=== PATIENT | male | born 1955 | race Caucasian/White ===

== ENCOUNTER 2021-03-03 10:08 | Inpatient (IN) | payer MEDICARE ==
[~2021-03-03] VITALS: Ht 176.5 cm; Wt 67.3 kg
[~2021-03-03 10:08] MED LIST: DIAZEPAM 5MG TAB5 MG PO; DULERA 200 MCG8.8 GM INH; DUONEB 2.5-0.5M1 AMP NEB; LOPRESSOR50 MG PO; MEDROL 4MG DOSEP4 MG PO
[2021-03-03 10:37] LABS: BASOPHIL 0.8 % (0-2); EOSINOPHIL 0.3 % (0-7); HCT 48.8 % (42.0-52.0); HGB 16.2 g/dl (13.2-18.0); LYMPHOCYTE 9.2 % (15-48); MCH 30.3 pg (25.0-31.0); MCHC 33.2 g/dL (32.0-36.0); MCV 91.2 fL (78.0-100.0); MONOCYTE 6.4 % (0-12); MPV 10.6 fL (6.0-9.5); NEUTROPHIL 82.9 % (41-80); NRBC 0; PLT 347 K/uL (150-400); RBC 5.35 M/uL (4.70-6.00); RDW 13.5 % (11.5-14.0)
[2021-03-03 10:58] LABS: PRO-BNP 40 pg/mL (<125)
[2021-03-03 11:04] LABS: ALBUMIN 4.2 g/dL (3.4-5.0); BILIRUBIN - TOTAL 0.5 mg/dL (0.2-1.0); BUN/CREAT RATIO (CALC) 22.1 RATIO; CREATININE 1.04 mg/dL (0.67-1.17); GLOBULIN (CALCULATION) 3.9 g/dL; POTASSIUM 5.2 mmol/L (3.5-5.1); TOTAL PROTEIN 8.1 g/dL (6.4-8.2)
[2021-03-03 11:41] LABS: CORONAVIRUS 2019 SARS-COV-2 NEGATIVE (NEGATIVE); INFLUENZA A NAA NEGATIVE (NEGATIVE)
[2021-03-03 11:50] LABS: BILIRUBIN 1+ mg/dL (NEGATIVE); BLOOD TRACE-INTACT Ery/uL (NEGATIVE); CLARITY CLEAR (CLEAR); COLOR YELLOW (YELLOW); GLUCOSE (U) NORMAL (NORMAL); LEUKOCYTES NEGATIVE Leu/uL (NEGATIVE); NITRITE NEGATIVE (NEGATIVE); PROTEIN 1+ mg/dL (NEGATIVE); SPECIFIC GRAVITY >=1.030 (1.001-1.030); UROBILINOGEN 0.2 mg/dL (0.2-1.0); pH 5.5 (5.0-9.0)
[2021-03-03 12:41] LABS: BACTERIA TRACE; URINARY RBC RARE
[2021-03-03 12:42] LABS: GRANULAR CASTS TRACE; MUCOUS TRACE
[2021-03-03 12:45] LABS: SQUAMOUS EPITHELIAL CELLS RARE
[2021-03-03] MEDS ORDERED: PROAIR HFA8.5 GM INH (14:22)
[2021-03-04 06:08] LABS: BASOPHIL 0.2 % (0-2); EOSINOPHIL 0 % (0-7); HGB 12.9 g/dl (13.2-18.0); MCH 30.8 pg (25.0-31.0); MCHC 33.9 g/dL (32.0-36.0); MCV 90.7 fL (78.0-100.0); MONOCYTE 4.5 % (0-12); MPV 10.9 fL (6.0-9.5); NEUTROPHIL 89.6 % (41-80); NRBC 0; PLT 249 K/uL (150-400); RBC 4.19 M/uL (4.70-6.00); RDW 13.6 % (11.5-14.0); WBC 14.1 K/uL (4.0-10.5)
[2021-03-04 06:36] LABS: BUN/CREAT RATIO (CALC) 22.5 RATIO; CREATININE 0.8 mg/dL (0.67-1.17); MAGNESIUM 1.6 mg/dL (1.8-2.4); POTASSIUM 4.6 mmol/L (3.5-5.1)
[2021-03-05 07:06] LABS: BASOPHIL 0.2 % (0-2); EOSINOPHIL 0 % (0-7); HCT 37.3 % (42.0-52.0); HGB 12.4 g/dl (13.2-18.0); LYMPHOCYTE 2.9 % (15-48); MCH 30.2 pg (25.0-31.0); MCHC 33.2 g/dL (32.0-36.0); MONOCYTE 4.3 % (0-12); NEUTROPHIL 91.5 % (41-80); NRBC 0; PLT 255 K/uL (150-400); RDW 13.9 % (11.5-14.0)
[2021-03-05 07:10] LABS: WBC 19.4 K/uL (4.0-10.5)
[2021-03-05 07:36] LABS: BUN/CREAT RATIO (CALC) 23.7 RATIO; CREATININE 0.76 mg/dL (0.67-1.17); POTASSIUM 4.4 mmol/L (3.5-5.1)
[2021-03-05 07:50] LABS: MAGNESIUM 2.1 mg/dL (1.8-2.4)
--- NOTE | 2021-03-05 15:01 | NUR ---
MET WITH PT. ADVISED THAT IN HAD BEEN NOTIFIED OF HIS ADMISSION. GAVE PT. INFORMATION REGARDING SOCIAL SECURITY DISABILITY AND FIANANCIAL RESOURCES. PT. STATES THAT HE INTENDS TO RETURN TO WORK AT [email or web address]
[2021-03-06 05:45] LABS: BASOPHIL 0.2 % (0-2); EOSINOPHIL 0 % (0-7); HCT 35.3 % (42.0-52.0); HGB 11.8 g/dl (13.2-18.0); LYMPHOCYTE 8.9 % (15-48); MCH 30.6 pg (25.0-31.0); MCHC 33.4 g/dL (32.0-36.0); MCV 91.7 fL (78.0-100.0); MONOCYTE 10.1 % (0-12); NEUTROPHIL 79.8 % (41-80); NRBC 0; PLT 249 K/uL (150-400); RBC 3.85 M/uL (4.70-6.00); RDW 14.1 % (11.5-14.0); WBC 14.2 K/uL (4.0-10.5)
[2021-03-06 06:08] LABS: BUN/CREAT RATIO (CALC) 19.5 RATIO; CREATININE 0.82 mg/dL (0.67-1.17); MAGNESIUM 1.8 mg/dL (1.8-2.4); PHOSPHORUS 2.3 mg/dL (2.6-4.7); POTASSIUM 4.2 mmol/L (3.5-5.1)
[2021-03-07 06:19] LABS: BASOPHIL 0.6 % (0-2); EOSINOPHIL 0 % (0-7); HCT 41.3 % (42.0-52.0); HGB 13.7 g/dl (13.2-18.0); LYMPHOCYTE 6.7 % (15-48); MCH 30.2 pg (25.0-31.0); MCHC 33.2 g/dL (32.0-36.0); MCV 91.2 fL (78.0-100.0); MONOCYTE 5.5 % (0-12); MPV 11.3 fL (6.0-9.5); NEUTROPHIL 84.5 % (41-80); NRBC 0; PLT 254 K/uL (150-400); RBC 4.53 M/uL (4.70-6.00); WBC 11.9 K/uL (4.0-10.5)
[2021-03-07 06:47] LABS: ALBUMIN 2.6 g/dL (3.4-5.0); BILIRUBIN - TOTAL 0.2 mg/dL (0.2-1.0); BUN/CREAT RATIO (CALC) 20.3 RATIO; CREATININE 0.74 mg/dL (0.67-1.17); GLOBULIN (CALCULATION) 3.5 g/dL; MAGNESIUM 1.7 mg/dL (1.8-2.4); POTASSIUM 4.6 mmol/L (3.5-5.1); TOTAL PROTEIN 6.1 g/dL (6.4-8.2)
[2021-03-08] MEDS ORDERED: XANAX0.5 MG PO ×2 (09:09→09:14)
[2021-03-08] MEDS ORDERED: BREO ELLIPTA 11 EACH INH (09:09)
[2021-03-08] MEDS ORDERED: DUONEB 2.5-0.5M1 AMP NEB (09:09)
[2021-03-08] MEDS ORDERED: SINGULAIR10 MG PO (09:09)
[2021-03-08] MEDS ORDERED: ALPRAZOLAM0.5 MG PO (09:14)
[2021-03-08 09:56] LABS: BASOPHIL 0.2 % (0-2); EOSINOPHIL 1.7 % (0-7); HCT 41.6 % (42.0-52.0); HGB 13.8 g/dl (13.2-18.0); LYMPHOCYTE 16.5 % (15-48); MCH 30.2 pg (25.0-31.0); MCHC 33.2 g/dL (32.0-36.0); MONOCYTE 9.7 % (0-12); NRBC 0.2; PLT 251 K/uL (150-400); RBC 4.57 M/uL (4.70-6.00); RDW 14.2 % (11.5-14.0); WBC 12.9 K/uL (4.0-10.5)
[2021-03-08 10:03] LABS: NEUTROPHIL 65.9 % (41-80)
[2021-03-08 10:35] LABS: BUN/CREAT RATIO (CALC) 17.6 RATIO; CREATININE 0.85 mg/dL (0.67-1.17); MAGNESIUM 1.5 mg/dL (1.8-2.4); POTASSIUM 3.7 mmol/L (3.5-5.1)
== END 2021-03-08 14:13 | disposition home or self-care (01) | DRG 872 ==
LOC: FER 10:08 → FMS 12:34
PROVIDERS: Emergency Medicine; ADMIT Internal Medicine
DX: A41.9 Sepsis, unspecified organism (principal); J44.0 Chronic obstructive pulmonary disease with (acute) lower respiratory infection; J44.1 Chronic obstructive pulmonary disease with (acute) exacerbation; E87.2 Acidosis; J43.9 Emphysema, unspecified; R65.20 Severe sepsis without septic shock; J20.9 Acute bronchitis, unspecified; F17.210 Nicotine dependence, cigarettes, uncomplicated; F41.9 Anxiety disorder, unspecified; E83.42 Hypomagnesemia; Z20.822 Contact with and (suspected) exposure to COVID-19; R00.0 Tachycardia, unspecified; R06.03 Acute respiratory distress; G89.29 Other chronic pain; M54.2 Cervicalgia; Z87.442 Personal history of urinary calculi; Z87.01 Personal history of pneumonia (recurrent); Z88.5 Allergy status to narcotic agent; Z80.0 Family history of malignant neoplasm of digestive organs; Z82.49 Family history of ischemic heart disease and other diseases of the circulatory system; Z81.2 Family history of tobacco abuse and dependence; Z79.899 Other long term (current) drug therapy
CPT/HCPCS: 36415; 36600; 71045; 71046; 71275; 80048; 80053; 81001; 82803; 83605; 83735; 83880; 84100; 84145; 84484; 85025; 85379; 87040; 87088; 93005; 94640; 94667; 94668; 94760; J0456; J0696; J1650; J2920; J2930; J3475; J7030; J7050; J7120; Q9967; U0002

== ENCOUNTER 2021-05-28 09:52 | Inpatient (IN) | payer MEDICARE ==
[~2021-05-28] VITALS: Ht 175.3 cm; Wt 66.4 kg
[~2021-05-28 09:52] MED LIST changes: +ALPRAZOLAM0.5 MG PO; +BREO ELLIPTA 11 EACH INH; +PROAIR HFA8.5 GM INH; +SINGULAIR10 MG PO; +XANAX0.5 MG PO
[2021-05-28 10:10] LABS: BASOPHIL 1.4 % (0-2); EOSINOPHIL 1.8 % (0-7); HCT 51.4 % (42.0-52.0); HGB 16.8 g/dl (13.2-18.0); LYMPHOCYTE 34.9 % (15-48); MCH 29.4 pg (25.0-31.0); MCHC 32.7 g/dL (32.0-36.0); MCV 89.9 fL (78.0-100.0); MONOCYTE 7.6 % (0-12); MPV 9.8 fL (6.0-9.5); NRBC 0; PLT 329 K/uL (150-400); RBC 5.72 M/uL (4.70-6.00); RDW 14.8 % (11.5-14.0); WBC 7.6 K/uL (4.0-10.5)
[2021-05-28 10:37] LABS: BILIRUBIN - TOTAL 0.2 mg/dL (0.2-1.0); BUN/CREAT RATIO (CALC) 28.6 RATIO; CREATININE 0.84 mg/dL (0.67-1.17); GLOBULIN (CALCULATION) 4.1 g/dL; MAGNESIUM 1.9 mg/dL (1.8-2.4); POTASSIUM 4.1 mmol/L (3.5-5.1); TOTAL PROTEIN 8.1 g/dL (6.4-8.2)
[2021-05-28 13:22] LABS: AMPHETAMINES NEGATIVE (NEGATIVE); BARBITURATES NEGATIVE (NEGATIVE); BILIRUBIN NEGATIVE (NEGATIVE); BLOOD 1+ Ery/uL (NEGATIVE); CLARITY CLEAR (CLEAR); COLOR YELLOW (YELLOW); ECSTASY (MDMA) NEGATIVE (NEGATIVE); GLUCOSE (U) NORMAL (NORMAL); LEUKOCYTES NEGATIVE Leu/uL (NEGATIVE); MARIJUANA (THC) NEGATIVE (NEGATIVE); METHADONE NEGATIVE (NEGATIVE); NITRITE NEGATIVE (NEGATIVE); OPIATES NEGATIVE (NEGATIVE); OXYCODONE NEGATIVE (NEGATIVE); PROTEIN 1+ mg/dL (NEGATIVE); SPECIFIC GRAVITY >=1.030 (1.001-1.030); UROBILINOGEN 0.2 mg/dL (0.2-1.0); pH 5.5 (5.0-9.0)
[2021-05-28 13:37] LABS: URINARY WBC RARE
[2021-05-28 15:33] LABS: LACTIC ACID 6.2 mmol/L (0.4-1.9)
[2021-05-29 04:54] LABS: BUN/CREAT RATIO (CALC) 27.9 RATIO; CREATININE 0.68 mg/dL (0.67-1.17); MAGNESIUM 1.7 mg/dL (1.8-2.4); PHOSPHORUS 2.6 mg/dL (2.6-4.7); POTASSIUM 4.9 mmol/L (3.5-5.1)
[2021-05-29 09:22] LABS: IRON % SATURATION 98.3 %SAT (20-50)
--- NOTE | 2021-05-29 17:34 | NUR ---
5271 PT DISCHARGE INSTRUCTION DISCUSSED WITH PT, PT VERBALIZED UNDERSTANDING. PT TRANSPORTED VIA WHEELCHAIR TO CAB TO TAKE HIM HOME.
== END 2021-05-29 16:53 | disposition home or self-care (01) | DRG 896 ==
LOC: FER 09:52 → FTCU 13:24
PROVIDERS: Emergency Medicine; ADMIT Internal Medicine
DX: F10.229 Alcohol dependence with intoxication, unspecified (principal); G93.41 Metabolic encephalopathy; E87.2 Acidosis; Y90.8 Blood alcohol level of 240 mg/100 ml or more; J44.9 Chronic obstructive pulmonary disease, unspecified; F10.239 Alcohol dependence with withdrawal, unspecified; F17.210 Nicotine dependence, cigarettes, uncomplicated; G89.29 Other chronic pain; Z20.822 Contact with and (suspected) exposure to COVID-19; Z87.01 Personal history of pneumonia (recurrent); Z98.890 Other specified postprocedural states; Z87.440 Personal history of urinary (tract) infections; Z88.5 Allergy status to narcotic agent; Z79.51 Long term (current) use of inhaled steroids; Z79.899 Other long term (current) drug therapy
CPT/HCPCS: 36415; 36600; 70450; 71045; 80048; 80053; 80305; 81001; 82550; 82607; 82803; 83540; 83550; 83605; 83735; 84100; 84484; 85025; 87088; 93005; 94640; C9113; G0480; J2560; J2930; J3360; J3411; J3475; J7120; U0002

== ENCOUNTER 2021-06-21 07:55 | Day surgery (SDCO) | payer OTHER ==
[~2021-06-21] VITALS: Ht 177.8 cm; Wt 63.0 kg
[2021-06-21 09:10] LABS: BASOPHIL 8.6 % (0-2); EOSINOPHIL 0 % (0-7); HCT 51.6 % (42.0-52.0); HGB 17.4 g/dl (13.2-18.0); LYMPHOCYTE 5.6 % (15-48); MCH 30.1 pg (25.0-31.0); MCHC 33.7 g/dL (32.0-36.0); MCV 89.3 fL (78.0-100.0); MONOCYTE 6.2 % (0-12); MPV 12.8 fL (6.0-9.5); NEUTROPHIL 64.6 % (41-80); PLT 125 K/uL (150-400); RBC 5.78 M/uL (4.70-6.00); RDW 15.8 % (11.5-14.0)
[2021-06-21 09:17] LABS: NRBC 0; WBC 4.7 K/uL (4.0-10.5)
[2021-06-21 09:34] LABS: LACTIC ACID 4.4 mmol/L (0.4-1.9)
[2021-06-21 09:39] LABS: ALBUMIN 4.5 g/dL (3.4-5.0); BILIRUBIN - TOTAL 1.8 mg/dL (0.2-1.0); BUN/CREAT RATIO (CALC) 32.2 RATIO; CREATININE 0.87 mg/dL (0.67-1.17); GLOBULIN (CALCULATION) 4.6 g/dL; POTASSIUM 3.3 mmol/L (3.5-5.1); TOTAL PROTEIN 9.1 g/dL (6.4-8.2)
[2021-06-21] MEDS ORDERED: TRAZODONE HCL150 MG PO (16:17)
[2021-06-21] MEDS ORDERED: COMBIVENT RESPIM4 GM INH (16:21)
[2021-06-22 04:54] LABS: BASOPHIL 0.1 % (0-2); EOSINOPHIL 0.1 & (0-7); HCT 38.5 % (42.0-52.0); HGB 12.8 g/dl (13.2-18.0); LYMPHOCYTE 14.8 % (15-48); MCH 30.2 pg (25.0-31.0); MCHC 33.2 g/dL (32.0-36.0); MCV 90.8 fL (78.0-100.0); MONOCYTE 8.8 % (0-12); MPV 12.9 fL (6.0-9.5); NEUTROPHIL 75.7 % (41-80); PLT 90 K/uL (150-400); RBC 4.24 M/uL (4.70-6.00); RDW 15.2 % (11.5-14.0); WBC 7.92 K/uL (4.0-10.5)
[2021-06-22 05:16] LABS: ALBUMIN 2.8 g/dL (3.4-5.0); BILIRUBIN - TOTAL 0.7 mg/dL (0.2-1.0); BUN/CREAT RATIO (CALC) 23.4 RATIO; CREATININE 0.77 mg/dL (0.67-1.17); GLOBULIN (CALCULATION) 3.2 g/dL; MAGNESIUM 1.7 mg/dL (1.8-2.4); POTASSIUM 3.3 mmol/L (3.5-5.1)
[2021-06-23 06:06] LABS: BASOPHIL 0.3 % (0-2); EOSINOPHIL 1.8 & (0-7); HCT 39.2 % (42.0-52.0); HGB 12.8 g/dl (13.2-18.0); LYMPHOCYTE 20.3 % (15-48); MCH 29.9 pg (25.0-31.0); MCHC 32.7 g/dL (32.0-36.0); MCV 91.6 fL (78.0-100.0); MONOCYTE 10.8 % (0-12); MPV 12.1 fL (6.0-9.5); NEUTROPHIL 66.1 % (41-80); RBC 4.28 M/uL (4.70-6.00); RDW 14.9 % (11.5-14.0)
[2021-06-23 06:08] LABS: PLT 86 K/uL (150-400)
[2021-06-23 06:43] LABS: ALBUMIN 2.6 g/dL (3.4-5.0); BILIRUBIN - TOTAL 0.7 mg/dL (0.2-1.0); BUN/CREAT RATIO (CALC) 15.7 RATIO; CREATININE 0.7 mg/dL (0.67-1.17); MAGNESIUM 1.7 mg/dL (1.8-2.4); PHOSPHORUS 3.2 mg/dL (2.6-4.7); POTASSIUM 3.4 mmol/L (3.5-5.1); TOTAL PROTEIN 5.6 g/dL (6.4-8.2)
--- NOTE | 2021-06-23 15:14 | NUR ---
PATIENTS BROTHER TOOK PATIENTS KLINE HOME PER PATIENT REQUEST. I COUNTED THE MONEY WITH THE PATIENT AND HIS BROTHER, ENRIQUE DE LEÓN HAD A TOTAL OF $[id number] DAVID DE LEÓN BROTHER TOOK KLINE HOME, PATIENT APPROVED. PATIENT HAD URINATED ON KLINE. I TOLD PATIENT WE COULD LOCK UP HIS MONEY IN THE SAFE IN THE CLOSET, HOWEVER PATIENT WANTED BROTHER TO TAKE THE KLINE WITH HIM.
[2021-06-24 07:42] LABS: BASOPHIL 0.7 % (0-2); EOSINOPHIL 4.8 % (0-7); HCT 38.6 % (42.0-52.0); HGB 12.9 g/dl (13.2-18.0); LYMPHOCYTE 22.3 % (15-48); MCH 30.4 pg (25.0-31.0); MCHC 33.4 g/dL (32.0-36.0); MCV 90.8 fL (78.0-100.0); MONOCYTE 14.7 % (0-12); MPV 11.8 fL (6.0-9.5); NEUTROPHIL 56.3 % (41-80); NRBC 0; PLT 114 K/uL (150-400); RBC 4.25 M/uL (4.70-6.00); WBC 5.8 K/uL (4.0-10.5)
[2021-06-24 07:53] LABS: ALBUMIN 2.6 g/dL (3.4-5.0); BILIRUBIN - TOTAL 0.5 mg/dL (0.2-1.0); BUN/CREAT RATIO (CALC) 17.7 RATIO; CREATININE 0.62 mg/dL (0.67-1.17); GLOBULIN (CALCULATION) 3.1 g/dL; MAGNESIUM 1.6 mg/dL (1.8-2.4); POTASSIUM 3.5 mmol/L (3.5-5.1); TOTAL PROTEIN 5.7 g/dL (6.4-8.2)
--- NOTE | 2021-06-24 13:50 | NUR ---
06/24/21 Mr. mcmahon will be discharged on 06/25. A referral was made to [place], Olya Osei, , to arrange for a cane and HH for PT.
== END 2021-06-25 14:24 | disposition home health service (06) ==
LOC: FER 07:55 → FMS 13:57
PROVIDERS: Emergency Medicine Emergency Medical Services; ADMIT Internal Medicine
DX: F10.131 Alcohol abuse with withdrawal delirium (principal); J44.9 Chronic obstructive pulmonary disease, unspecified; F17.210 Nicotine dependence, cigarettes, uncomplicated; I44.4 Left anterior fascicular block; I51.7 Cardiomegaly; K22.8 Other specified diseases of esophagus; M54.2 Cervicalgia; G89.29 Other chronic pain; Z79.51 Long term (current) use of inhaled steroids; Z79.899 Other long term (current) drug therapy; Z88.5 Allergy status to narcotic agent; Z20.822 Contact with and (suspected) exposure to COVID-19; Z87.01 Personal history of pneumonia (recurrent); Z87.81 Personal history of (healed) traumatic fracture
CPT/HCPCS: 36415; 36600; 70450; 71045; 71275; 80053; 82803; 83605; 83690; 83735; 83880; 84100; 84484; 85025; 85379; 86140; 87040; 87880; 93005; 94640; 97110; 97116; 97161; G0378; J0696; J1650; J2060; J2405; J2930; J3411; J3475; J7030; J7050; J7120; Q9967; U0002

== ENCOUNTER 2021-09-15 15:17 | Inpatient (IN) | payer OTHER ==
[~2021-09-15] VITALS: Ht 175.3 cm; Wt 61.7 kg
[~2021-09-15 15:17] MED LIST changes: +COMBIVENT RESPIM4 GM INH; +TRAZODONE HCL150 MG PO
[2021-09-15 15:54] LABS: BASOPHIL 0.9 % (0-2); EOSINOPHIL 1.1 % (0-7); HGB 13.2 g/dl (13.2-18.0); LYMPHOCYTE 15.7 % (15-48); MCH 30.3 pg (25.0-31.0); MCHC 33.8 g/dL (32.0-36.0); MCV 89.7 fL (78.0-100.0); MONOCYTE 12.7 % (0-12); MPV 10.4 fL (6.0-9.5); NEUTROPHIL 68.7 % (41-80); NRBC 0.9; PLT 143 K/uL (150-400); RBC 4.35 M/uL (4.70-6.00); RDW 16.2 % (11.5-14.0); WBC 4.6 K/uL (4.0-10.5)
[2021-09-15 16:11] LABS: BILIRUBIN - TOTAL 0.7 mg/dL (0.2-1.0); BUN/CREAT RATIO (CALC) 32.4 RATIO; CREATININE 0.68 mg/dL (0.67-1.17); GLOBULIN (CALCULATION) 3.6 g/dL; POTASSIUM 3.9 mmol/L (3.5-5.1); TOTAL PROTEIN 7.6 g/dL (6.4-8.2)
[2021-09-15 16:58] LABS: BILIRUBIN NEGATIVE (NEGATIVE); BLOOD 2+ Ery/uL (NEGATIVE); CLARITY CLEAR (CLEAR); COLOR YELLOW (YELLOW); GLUCOSE (U) 2+ mg/dL (NORMAL); LEUKOCYTES NEGATIVE Leu/uL (NEGATIVE); NITRITE NEGATIVE (NEGATIVE); PROTEIN 2+ mg/dL (NEGATIVE); SPECIFIC GRAVITY >=1.030 (1.001-1.030)
[2021-09-15 16:59] LABS: AMPHETAMINES NEGATIVE (NEGATIVE); BARBITURATES NEGATIVE (NEGATIVE); ECSTASY (MDMA) NEGATIVE (NEGATIVE); MARIJUANA (THC) NEGATIVE (NEGATIVE); METHADONE NEGATIVE (NEGATIVE); OPIATES NEGATIVE (NEGATIVE); OXYCODONE NEGATIVE (NEGATIVE)
[2021-09-15 17:04] LABS: BACTERIA TRACE; SQUAMOUS EPITHELIAL CELLS RARE
[2021-09-15 18:19] LABS: INR 0.92 (0.9-1.2); PROTHROMBIN TIME 11.8 SECONDS (11.8-13.4)
[2021-09-15 18:33] LABS: MAGNESIUM 1.6 mg/dL (1.8-2.4)
[2021-09-16 06:20] LABS: BASOPHIL 0.7 % (0-2); EOSINOPHIL 0.5 % (0-7); HCT 32.6 % (42.0-52.0); HGB 11.2 g/dl (13.2-18.0); MCH 30.4 pg (25.0-31.0); MCHC 34.4 g/dL (32.0-36.0); MCV 88.6 fL (78.0-100.0); MONOCYTE 8.6 % (0-12); MPV 11.3 fL (6.0-9.5); NEUTROPHIL 74.5 % (41-80); NRBC 1.5; PLT 130 K/uL (150-400); RBC 3.68 M/uL (4.70-6.00); RDW 16.4 % (11.5-14.0); WBC 6.1 K/uL (4.0-10.5)
[2021-09-16 06:26] LABS: INR 0.92 (0.9-1.2); PROTHROMBIN TIME 11.8 SECONDS (11.8-13.4)
[2021-09-16 06:41] LABS: ALBUMIN 3.1 g/dL (3.4-5.0); BILIRUBIN - TOTAL 1.2 mg/dL (0.2-1.0); BUN/CREAT RATIO (CALC) 26.5 RATIO; CREATININE 0.68 mg/dL (0.67-1.17); GLOBULIN (CALCULATION) 3.1 g/dL; MAGNESIUM 1.8 mg/dL (1.8-2.4); POTASSIUM 3.8 mmol/L (3.5-5.1); TOTAL PROTEIN 6.2 g/dL (6.4-8.2)
[2021-09-16 09:23] LABS: IRON % SATURATION 81.7 %SAT (20-50)
[2021-09-16 09:50] LABS: PHOSPHORUS 2.6 mg/dL (2.6-4.7)
[2021-09-17 06:21] LABS: BASOPHIL 0.7 % (0-2); HCT 33.4 % (42.0-52.0); LYMPHOCYTE 21.2 % (15-48); MCHC 32.9 g/dL (32.0-36.0); MONOCYTE 9.9 % (0-12); MPV 11.7 fL (6.0-9.5); NEUTROPHIL 65.4 % (41-80); NRBC 1.2; PLT 119 K/uL (150-400); RBC 3.67 M/uL (4.70-6.00)
[2021-09-17 06:47] LABS: ALBUMIN 2.8 g/dL (3.4-5.0); BILIRUBIN - TOTAL 0.8 mg/dL (0.2-1.0); BUN/CREAT RATIO (CALC) 15.7 RATIO; CREATININE 0.7 mg/dL (0.67-1.17); GLOBULIN (CALCULATION) 2.8 g/dL; MAGNESIUM 1.9 mg/dL (1.8-2.4); PHOSPHORUS 2.5 mg/dL (2.6-4.7); POTASSIUM 3.5 mmol/L (3.5-5.1); TOTAL PROTEIN 5.6 g/dL (6.4-8.2)
[2021-09-18] MEDS ORDERED: VITAMIN B-1100 MG PO (12:13)
== END 2021-09-18 12:50 | disposition home or self-care (01) | DRG 897 ==
LOC: FER 15:17 → FICU 17:20 → FTCU 17:20 → FICU 17:54
PROVIDERS: Emergency Medicine; Internal Medicine; ADMIT Family Medicine
PROC: HZ2ZZZZ Detoxification Services for Substance Abuse Treatment (ICD-10-PCS; principal; 2021-09-15)
DX: F10.231 Alcohol dependence with withdrawal delirium (principal); Z20.822 Contact with and (suspected) exposure to COVID-19; J44.9 Chronic obstructive pulmonary disease, unspecified; R27.0 Ataxia, unspecified; F17.200 Nicotine dependence, unspecified, uncomplicated; D69.59 Other secondary thrombocytopenia; R73.9 Hyperglycemia, unspecified; R94.31 Abnormal electrocardiogram [ECG] [EKG]; Z71.6 Tobacco abuse counseling; Z83.3 Family history of diabetes mellitus; Z82.49 Family history of ischemic heart disease and other diseases of the circulatory system; Z98.890 Other specified postprocedural states; Z87.442 Personal history of urinary calculi; Z88.5 Allergy status to narcotic agent
CPT/HCPCS: 36415; 80053; 80305; 81001; 82140; 82550; 82607; 83036; 83540; 83550; 83690; 83735; 84100; 84484; 85025; 85610; 93005; 97110; 97162; 97166; 97530-GP; 97535; C9113; G0480; J1650; J2060; J2405; J3411; J3475; J7030; J7120; U0002

== ENCOUNTER 2021-10-13 03:10 | Inpatient (IN) | payer OTHER ==
[~2021-10-13] VITALS: Ht 177.8 cm; Wt 96.2 kg
[~2021-10-13 03:10] MED LIST changes: +VITAMIN B-1100 MG PO
[2021-10-13 04:05] LABS: BASOPHIL 0.5 % (0-2); EOSINOPHIL 0 % (0-7); HGB 13.3 g/dl (13.2-18.0); LYMPHOCYTE 15.3 % (15-48); MCH 30.9 pg (25.0-31.0); MCHC 34.1 g/dL (32.0-36.0); MCV 90.7 fL (78.0-100.0); MPV 11.6 fL (6.0-9.5); NEUTROPHIL 67.7 % (41-80); NRBC 0.9; PLT 106 K/uL (150-400); RDW 19.7 % (11.5-14.0); WBC 5.6 K/uL (4.0-10.5)
[2021-10-13 04:12] LABS: ECSTASY (MDMA) NEGATIVE (NEGATIVE); MARIJUANA (THC) NEGATIVE (NEGATIVE); METHADONE NEGATIVE (NEGATIVE); OPIATES NEGATIVE (NEGATIVE)
[2021-10-13 04:13] LABS: AMPHETAMINES NEGATIVE (NEGATIVE); BARBITURATES NEGATIVE (NEGATIVE); OXYCODONE NEGATIVE (NEGATIVE)
[2021-10-13 04:25] LABS: CORONAVIRUS 2019 SARS-COV-2 NEGATIVE (NEGATIVE); INFLUENZA A NAA NEGATIVE (NEGATIVE)
[2021-10-13 04:33] LABS: LACTIC ACID 2.7 mmol/L (0.4-1.9)
[2021-10-13 04:36] LABS: ALBUMIN 4.1 g/dL (3.4-5.0); ALKALINE PHOSHATASE 132 U/L (46-116); ALT 93 U/L (16-63); AST 120 U/L (15-37); BILIRUBIN - TOTAL 1.5 mg/dL (0.2-1.0); BUN 18 mg/dL (7-18); BUN/CREAT RATIO (CALC) 24.7 RATIO; CHLORIDE 92 mmol/L (98-107); CO2 (BICARBONATE) 30 mmol/L (21-32); CREATININE 0.73 mg/dL (0.67-1.17); GLOBULIN (CALCULATION) 3.2 g/dL; GLUCOSE 106 mg/dL (74-106); LIPASE 273 U/L (73-393); PHOSPHORUS 2.5 mg/dL (2.6-4.7); POTASSIUM 3.9 mmol/L (3.5-5.1); TOTAL PROTEIN 7.3 g/dL (6.4-8.2)
[2021-10-13 04:41] LABS: C-REACTIVE PROTEIN < 0.20 mg/dL (<=0.90)
[2021-10-13 08:56] LABS: BILIRUBIN 1+ mg/dL (NEGATIVE); BLOOD 3+ Ery/uL (NEGATIVE); CLARITY CLEAR (CLEAR); GLUCOSE (U) NORMAL (NORMAL); LEUKOCYTES NEGATIVE Leu/uL (NEGATIVE); NITRITE NEGATIVE (NEGATIVE); PROTEIN 2+ mg/dL (NEGATIVE); pH 8.5 (5.0-9.0)
[2021-10-13 09:13] LABS: COLOR AMBER (YELLOW)
[2021-10-13 09:14] LABS: BACTERIA TRACE; SQUAMOUS EPITHELIAL CELLS RARE; URINARY RBC 20-50
[2021-10-14 07:20] LABS: BASOPHIL 0.7 % (0-2); EOSINOPHIL 0.7 % (0-7); HCT 31.6 % (42.0-52.0); HGB 10.8 g/dl (13.2-18.0); LYMPHOCYTE 22.9 % (15-48); MCH 30.7 pg (25.0-31.0); MCHC 34.2 g/dL (32.0-36.0); MCV 89.8 fL (78.0-100.0); MONOCYTE 15.8 % (0-12); MPV 12.7 fL (6.0-9.5); NEUTROPHIL 59.2 % (41-80); NRBC 0.5; PLT 88 K/uL (150-400); RBC 3.52 M/uL (4.70-6.00); RDW 18.8 % (11.5-14.0); WBC 5.6 K/uL (4.0-10.5)
[2021-10-14 08:10] LABS: ALBUMIN 3.1 g/dL (3.4-5.0); BILIRUBIN - TOTAL 0.9 mg/dL (0.2-1.0); BUN/CREAT RATIO (CALC) 13.6 RATIO; CREATININE 0.66 mg/dL (0.67-1.17); GLOBULIN (CALCULATION) 2.9 g/dL; MAGNESIUM 1.1 mg/dL (1.8-2.4); PHOSPHORUS 2.5 mg/dL (2.6-4.7); POTASSIUM 2.9 mmol/L (3.5-5.1)
--- NOTE | 2021-10-14 15:13 | NUR ---
10/14 A social assessment was conducted with Mr. Dosrey. He was found to be mildly confused. He has been residing in a hotle, although he doesn't know the name of the hotel. Mr. Dorsey had a difficult time operating his cell telephone to call his sister. He reports to have his bags packed to go for treatment for etoh abuse arranged by his sister, Raquel Dorsey, . Raquel states that she doesn't have a facility for him to go. - Mr. Dorsey reports to have been using a wc owned by the [email or web address]. He has a cane. - Mr. Dorsey reports to have last drank 1.5 weeks ago. - PT recommended SNF. - Peggy Morales, [place] patient care provider, referred to [facility]. Clinicals were faxed to PCP, Reina Cummings NP (fax - [phone]). Glenis RIVERA, at the [facility], , reports that Mr. Dorsey does not have VA benefits for [place].
--- NOTE | 2021-10-14 19:26 | NUR ---
ASKED DR. LESTER IF HE WANTED PATIENT ON TELY, DR. LESTER SAID NO. HE DIDN'T ORDER TELY FOR FLOOR DR. LESTER STATED. THAT WAS A ER ORDER BY A ER DOCTOR, NOT A ORDER FOR MEDSUR.
--- NOTE | 2021-10-14 21:43 | NUR ---
PT QUESTIONING "THE LITTLE GIRL" HE SEES OUTSIDE HIS ROOM. PT HALLUCINATING. WHEN EXPLAINED THERE WAS NO LITTLE GIRL PT STATED "WELL, I HOPE IM NOT THE ONLY ONE SEEING HER." PT AGREES TO CALL FOR AMULATION ASSIST. CALL LIGHT IN REACH, CHAIR ALARM ON.
[2021-10-15 07:44] LABS: BASOPHIL 1.2 % (0-2); EOSINOPHIL 2.6 % (0-7); HCT 35.3 % (42.0-52.0); HGB 11.6 g/dl (13.2-18.0); MCH 31.1 pg (25.0-31.0); MCHC 32.9 g/dL (32.0-36.0); MONOCYTE 15.6 % (0-12); MPV 11.4 fL (6.0-9.5); NEUTROPHIL 58.2 % (41-80); NRBC 0; RBC 3.73 M/uL (4.70-6.00); RDW 19.3 % (11.5-14.0)
[2021-10-15 07:45] LABS: MCV 94.6 fL (78.0-100.0); PLT 92 K/uL (150-400)
[2021-10-15 09:48] LABS: CREATININE 0.74 mg/dL (0.67-1.17)
[2021-10-15 09:49] LABS: POTASSIUM 4.3 mmol/L (3.5-5.1)
--- NOTE | 2021-10-16 14:01 | NUR ---
10/16/21 [facility] has declined to accept patient. Referrals have been faxed to [facility] (no bed), [facility], [place], and [facility].
--- NOTE | 2021-10-17 06:26 | NUR ---
EARLY THIS SHIFT, LAST NIGHT BEFORE HS, PT BEGAN CRYING & CONFIDING THAT HE MISSES HIS & FAMILY & FEELS HE HAS LOST EVERYTHING. I LISTENED, SUPPORTED PT & ALLOWED HIM TO PROCESS HIS FEELINGS.
--- NOTE | 2021-10-17 10:10 | NUR ---
10/17 [facility] has accepted patient for admission today. Please fax DS [phone] and call report to [phone]. Raquel Dorsey, sister, [phone] will transport. Please call Ms Dorsey when patient is ready for transport. Report given to MS MIGUEL Bauer.
[2021-10-18 10:07] LABS: HEMATOCRIT 34.4 % (37.5-51.0)
== END 2021-10-17 16:26 | DRG 897 ==
LOC: FER 03:10 → FMS 11:05 → FER 11:05 → FMS 12:06
PROVIDERS: Allergy & Immunology Allergy; Emergency Medicine Emergency Medical Services; ADMIT Internal Medicine
DX: F10.188 Alcohol abuse with other alcohol-induced disorder (principal); N39.0 Urinary tract infection, site not specified; G62.1 Alcoholic polyneuropathy; R27.0 Ataxia, unspecified; Z20.822 Contact with and (suspected) exposure to COVID-19; J44.9 Chronic obstructive pulmonary disease, unspecified; F10.130 Alcohol abuse with withdrawal, uncomplicated; R31.9 Hematuria, unspecified; M19.90 Unspecified osteoarthritis, unspecified site; K70.0 Alcoholic fatty liver; D69.59 Other secondary thrombocytopenia; M54.9 Dorsalgia, unspecified; Z79.52 Long term (current) use of systemic steroids; Z79.899 Other long term (current) drug therapy; Z80.0 Family history of malignant neoplasm of digestive organs; Z82.49 Family history of ischemic heart disease and other diseases of the circulatory system
CPT/HCPCS: 36415; 70450; 71260; 72125; 72128; 72131; 80048; 80053; 80305; 81001; 82607; 82747; 83605; 83690; 83735; 84100; 84145; 84443; 84484; 85014; 85025; 86140; 87040; 93005; 94640; 96372; 97162; 97166; 97530-GP; 97535; G0480; J0696; J2060; J2560; J3411; J3475; J7030; Q9967; U0002

== ENCOUNTER 2022-01-30 12:12 | Emergency (ER) | payer OTHER | END 2022-01-30 13:17 | disposition home or self-care (01) | LOC: FER 12:12 | DX: Z02.79 Encounter for issue of other medical certificate (principal); J44.9 Chronic obstructive pulmonary disease, unspecified; Z88.5 Allergy status to narcotic agent | CPT/HCPCS: 99283 ==

== ENCOUNTER 2022-01-30 22:01 | Emergency (ER) | payer OTHER ==
[2022-01-30 22:52] LABS: BASOPHIL 0.8 % (0-2); EOSINOPHIL 1.2 % (0-7); HGB 12.3 g/dl (13.2-18.0); LYMPHOCYTE 9.4 % (15-48); MCH 28.5 pg (25.0-31.0); MCHC 33.2 g/dL (32.0-36.0); MCV 85.8 fL (78.0-100.0); MONOCYTE 21.2 % (0-12); MPV 8.9 fL (6.0-9.5); NEUTROPHIL 66.3 % (41-80); NRBC 0; PLT 312 K/uL (150-400); RBC 4.31 M/uL (4.70-6.00); WBC 7.4 K/uL (4.0-10.5)
[2022-01-30 23:19] LABS: ALBUMIN 2.9 g/dL (3.4-5.0); BILIRUBIN - TOTAL 0.2 mg/dL (0.2-1.0); BUN/CREAT RATIO (CALC) 21.4 RATIO; CREATININE 0.7 mg/dL (0.67-1.17); GLOBULIN (CALCULATION) 4.3 g/dL; POTASSIUM 3.9 mmol/L (3.5-5.1); TOTAL PROTEIN 7.2 g/dL (6.4-8.2)
[2022-01-31 02:50] LABS: CORONAVIRUS 2019 SARS-COV-2 NEGATIVE (NEGATIVE); INFLUENZA A NAA NEGATIVE (NEGATIVE)
== END 2022-01-31 06:29 | disposition other institution (70) ==
LOC: FER 22:01
PROVIDERS: Internal Medicine; Nurse Practitioner Family
DX: K65.1 Peritoneal abscess (principal); Z20.822 Contact with and (suspected) exposure to COVID-19; Z28.310 Unvaccinated for COVID-19
CPT/HCPCS: 36415; 80053; 85025; J1170; J2543; J2550; J7030; Q9967; U0002